=== PATIENT | male | born 1980 | race Caucasian/White ===

== ENCOUNTER 2021-09-28 17:00 | Emergency (ER) | payer OTHER ==
[~2021-09-28] VITALS: Ht 170.2 cm; Wt 124.7 kg
[2021-09-28] MEDS ORDERED: FLONASE ALLERG9.9 ML (17:20)
[2021-09-28] MEDS ORDERED: ADVIL MIGRAINE200 MG PO (17:20)
[2021-09-28] MEDS ORDERED: CLARITIN10 M2 PO (17:20)
[2021-09-28] MEDS ORDERED: OMEPRAZOLE20 MG PO (17:20)
[2021-09-28] MEDS ORDERED: NAPROSYN500 MG PO (18:09)
[2021-09-28] MEDS ORDERED: CRUTCHES XX (18:09)
== END 2021-09-28 18:30 | disposition home or self-care (01) ==
LOC: ED 17:00
DX: S93.401A Sprain of unspecified ligament of right ankle, initial encounter (principal); J45.909 Unspecified asthma, uncomplicated; K21.9 Gastro-esophageal reflux disease without esophagitis; E66.9 Obesity, unspecified; Z88.8 Allergy status to other drugs, medicaments and biological substances; Z79.899 Other long term (current) drug therapy; X50.1XXA Overexertion from prolonged static or awkward postures, initial encounter; Y92.480 Sidewalk as the place of occurrence of the external cause
CPT/HCPCS: 73610; 99283-25